=== PATIENT | female | born 2000 | race Caucasian/White ===

== ENCOUNTER → 2020-10-19 16:00 | Outpatient (BNVA) | payer MEDICAID, SELFPAY | PROVIDERS: Visit Provider Nurse Practitioner Women's Health | DX: Z01.419 Encounter for gynecological examination (general) (routine) without abnormal findings (principal) | CPT/HCPCS: 88175 ==

== ENCOUNTER → 2021-11-10 14:55 | Outpatient (BNVA) | payer MEDICAID, SELFPAY | PROVIDERS: Visit Provider Obstetrics & Gynecology | DX: N92.6 Irregular menstruation, unspecified (principal) | CPT/HCPCS: 83525; 84443 ==

== ENCOUNTER → 2022-05-01 11:31 | Outpatient (BNVA) | payer MEDICAID, SELFPAY | PROVIDERS: Visit Provider Emergency Medicine | DX: O26.891 Other specified pregnancy related conditions, first trimester (principal); R10.2 Pelvic and perineal pain; Z3A.00 Weeks of gestation of pregnancy not specified | CPT/HCPCS: 84702 ==

== ENCOUNTER 2022-05-16 17:33 | Outpatient (CLI) | payer MEDICAID, SELFPAY ==
[2022-05-16 18:33] LABS: Basophils # 0.1 10^3/uL (0.0-0.1); Basophils % 0.5 %; Eosinophils # 0.2 10^3/uL (0.0-0.8); Eosinophils % 1.9 %; Hematocrit 37.9 % (37.0-47.0); Hemoglobin 12.7 g/dL (11.5-15.3); Lymphocytes % 40.3 %; Mean Corpuscular HGB Conc 33.5 g/dL (30.0-36.0); Mean Corpuscular Hemoglobin 31.1 pg (28.0-34.0); Mean Corpuscular Volume 92.7 fl (81-99); Mean Platelet Volume 10.6 fL (7.4-10.4); Monocytes % 9.8 %; Neutrophils # 4.67 10^3/uL (1.8-7.7); Neutrophils % 47.2 %; Nucleated Red Blood Cells % 0 %; Platelet Count 257 10^3/cmm (130-400); Red Blood Count 4.09 10^6/uL (4.1-5.3); Red Cell Distribution Width 12.4 % (12.1-15.1); White Blood Count 9.9 10^3/uL (4.0-10.0)
== END 2022-05-16 17:34 | disposition home or self-care (01) ==
LOC: LAB 17:41
PROVIDERS: PCP Nurse Practitioner Family; Visit Provider Nurse Practitioner Women's Health
DX: O46.90 Antepartum hemorrhage, unspecified, unspecified trimester (principal)
CPT/HCPCS: 84702; 85025; 86850; 86900

== ENCOUNTER → 2022-05-19 08:35 | Outpatient (BNVA) | payer MEDICAID, SELFPAY | PROVIDERS: PCP Nurse Practitioner Family; Visit Provider Nurse Practitioner Women's Health | DX: Z31.9 Encounter for procreative management, unspecified (principal); Z11.3 Encounter for screening for infections with a predominantly sexual mode of transmission; N63.0 Unspecified lump in unspecified breast; O20.0 Threatened abortion; Z34.90 Encounter for supervision of normal pregnancy, unspecified, unspecified trimester; N63.10 Unspecified lump in the right breast, unspecified quadrant; O20.9 Hemorrhage in early pregnancy, unspecified | CPT/HCPCS: 81025; 87491; 87591; 87661 ==

== ENCOUNTER 2022-06-01 18:08 | Emergency (ER) | payer MEDICAID, SELFPAY ==
[2022-06-01 19:20] VITALS: BMI 25.1
[2022-06-01 19:22] VITALS: BP 110/67; PULSE 85; RESP 18; TEMP 36.8; O2SAT 99
[2022-06-01 19:48] LABS: Add Urine Culture? No; Add Urine Microscopic? YES; Bacteria Urine TRACE /hpf; Bilirubin Urine Neg (Negative); Blood Urine Neg (Negative); Glucose Urine UA Norm (Normal); Ketones Urine Negative (Negative); Leukocyte Esterase Urine 1+ (Negative); Nitrate Urine Negative (Negative); Protein Urine Neg (Negative); RBC Urine 0-4 /hpf (0-2); Squamous Epithelial Cell Urine 25-40 /hpf (0-5); Urine Appearance Clear (CLEAR); Urine Color Yellow (Yellow); Urobilinogen Urine Norm (Negative); pH Urine 6 (5-7)
--- NOTE | 2022-06-01 21:44 | ED_ITS ---
HPI - Abdominal Pain General: Chief Complaint: Abdominal Pain Stated Complaint: 8 weeks cramping Time Seen by Provider: 06/01/22 20:20 History of Present Illness: Ms. Briseno is a 22-year-old lady G2, P1 LMP 04/07/2022 presenting to the emergency department for nausea, vomiting, and abdominal discomfort. She reports onset of symptoms approximately 2 weeks ago and contacted her physician who prescribed Reglan, she had mild improvement however now is worsening again where she is unable to tolerate any oral intake. She has had generalized abdominal cramping and some back pain. No vaginal bleeding or discharge. Urine seems more yellow than normal. Symptoms are exacerbated by any attempted p.o. intake. Cramping is mild to moderate intensity. Has had similar episodes with prior . No other specific changes in health, exacerbating, or alleviating factors identified. Onset (ago): day(s) Location: Diffuse Severity: moderate Quality: cramping Exacerbating factors: eating Relieving factors: nothing Associated Symptoms: Reports nausea and vomiting Treatments prior to arrival: other Related Data: Date of Last Menstrual Period: 04/07/22 Review of Systems General: Reports: 10 or more systems reviewed and unremarkable except in HPI and below GI: Reports: nausea and vomiting PFSH ED PFSH: Medical History No pertinent past medical history neghx: htn,dm,thyroid,dvt/pe Surgical History Hx of tonsillectomy Family History Family/Other Breast cancer Paternal aunt-- unknown dx age Grandmother Colon cancer Paternal --- unknown dx age Father Stroke Denies family history of Ovarian cancer Diabetes Heart disease Hypercholesteremia Bleeding disorder Hypertension Uterine cancer Thyroid disease Social History Smoking and tobacco status: former smoker (quit 2020) Female Reproductive History: Date of last menstrual period: 04/07/22 Sponta neous abortions: No Physical Exam Const: COMMON NORMALS: alert GENERAL APPEARANCE: cooperative, well developed and ill appearing (mildly) HENMT: COMMON NORMALS: normocephalic and atraumatic HEAD & SCALP: normocephalic and atraumatic Eye: COMMON NORMALS: conjunctivae normal CONJUNCTIVA: Yes conjunctivae normal SCLERA: sclerae normal Neck/C-Spine: COMMON NORMALS: supple GENERAL: Yes trachea midline Resp: COMMON NORMALS: clear to auscultation bilaterally EFFORT & INSPECTION: Yes able to speak in complete sentences AUSCULTATION: clear to auscultation bilaterally Cardio: COMMON NORMALS: regular rate and regular rhythm RATE: regular rate RHYTHM: regular rhythm GI: COMMON NORMALS: Soft to palpation PALPATION: Yes Soft to palpation and No Tenderness to palpation present (GI) Extremity: GENERAL: Yes normal exam except as noted and No edema Neuro: COMMON NORMALS: moves all extremities SENSORIUM/ORIENTATION: Yes alert and No Orientation impaired Psych: COMMON NORMALS: mental status grossly normal and Normal thought process present THOUGHT PROCESS: Normal thought process present Course Vital Signs: Vital signs: Vital Signs Temperature 98.2 F 06/01/22 19:22 Pulse Rate 85 06/01/22 19:22 Respiratory Rate 18 06/01/22 19:22 Blood Pressure 110/67 06/01/22 19:22 Pulse Oximetry 99 06/01/22 19:22 Oxygen Delivery Me thod 06/01/22 19:22 MDM - Abdominal Pain Medical Decision Making 22-year-old lady presenting with abdominal cramping, nausea, vomiting in the context of . Exam as above. Patient is nontoxic and there is no evidence of peritonitis. Urinalysis with squamous epithelial contamination. Wet prep with clue cells. Patient improved with fluids and antiemetic. She was able to tolerate antiemetic. 250 mg dose of Flagyl given. [id number]-[id number] ultrasound with IUP with normal heart rate identified. Most likely cause of patient symptoms is bacterial vaginosis and nausea and vomiting in . The results of ED evaluation were discussed with the patient including pre scriptions and/or symptomatic cares (if applicable) including appropriate and responsible use, followup plan, and return precautions. Patient has noted significant improvement with Reglan previously prescribed and therefore I will prescribe Zofran. The patient verbalized understanding and felt safe for discharge. Medical Records I reviewed the patient's medical records. Lab Data I reviewed the patient's lab results. Labs/Radiology: Laboratory Results Urine Color Yellow (Yellow) 06/01/22 19:19 Urine Appearance Clear (CLEAR) 06/01/22 19:19 Urine pH 6 (5-7) 06/01/22 19:19 Ur Specific [place] 1.020 (1.005-1.030) 06/01/22 19:19 Urine Protein Neg (Negative) 06/01/22 19:19 Urine Glucose (UA) Norm (Normal) 06/01/22 19:19 Urine Ketones Negative (Negative) 06/01/22 19:19 Urine Blood Neg (Negative) 06/01/22 19:19 Urine Nitrate Negative (Negative) 06/01/22 19:19 Urine Bilirubin Neg (Negative) 06/01/22 19:19 Urine Urobilinogen Norm mg/dL (Negative) 06/01/22 19:19 Ur Leukocyte Esterase 1+ (Negative) H 06/01/22 19:19 Urine RBC 0-4 /hpf (0-2) H 06/01/22 19:19 Urine WBC 10-15 /hpf (0-5) H 06/01/22 19:19 Ur Squamous Epith Cells 25-40 /hpf (0-5) H 06/01/22 19:19 Amorphous Sediment Not Reportable 06/01/22 19:19 Urine Bacteria Trace /hpf (NONE) 06/01/22 19:19 Discharge Plan Discharge Patient Disposition: Home Clinical Impression: Nausea/vomiting in , Bacterial vaginosis in Condition: Stable Prescriptions: New Unisom (doxylamine) 25 mg tablet 12.5 mg PO Q6H PRN (Reason: nausea and vomiting) Qty: 10 0RF pyridoxine (vitamin B6) 25 mg tablet 25 mg PO QID PRN (Reason: nausea and vomiting) Qty: 20 0RF ondansetron 4 mg tablet,disintegrating 4 mg PO Q8H PRN (Reason: nausea and vomiting) Qty: 15 0RF No Action prenat.vits,laurence,[id number] Tablet 1 tab PO DAILY metoclopramide HCl [Reglan] 10 mg tablet 10 mg PO Q6H PRN (Reason: nausea and vomiting) Qty: 120 0RF Discharge Orders: Discharge ED (Routine); Ordered 06/01/22 Ordered By: Bhavik Sanz Referrals: Melyssa Francisco, ARMATURE VARNISHER [Primary Care Provider] - Discharge Diet: Advance as tolerated and Clear Liquid Discharge Activity: Increase activity as tolerated Patient Instructions: Nausea and Vomiting in (ED), Bacterial Vaginosis (ED) Activity Restrictions/Additional Instructions: Thank you for visiting the emergency department. You were seen and evaluated for nausea and vomiting associated with abdominal discomfort during . We are pleased that you had improvement with treatment. You are found to have bacterial vaginosis which will be treated with antibiotics. Additionally will prescribe a number of antinausea medications. The combination of vitamin B6 and doxylamine is considered first-line for nausea and vomiting during given its safety profile. The Reglan that you were previously prescribed is considered the next most safe and I will also prescribe ondansetron if the others fail to improve symptoms. Recent small studies have raised a small degree of concern regarding small increase in likelihood of oral clefts associated with ondansetron use however, as discussed, your health likely makes a more significant effect on than possible side effects of medication. Please follow-up with your accounting recruiter. Return to the emergency department for uncontrolled symptoms, inability to tolerate oral intake, or anything else that you are concerned about a feel needs emergency department evaluation. Coding Level of Care Code ED Floor Renovator for Keli Loo
[2022-06-01] MEDS: ondansetron 2 mg/ML SDV 2 mL 4 MG IVP (22:16)
[2022-06-01] MEDS: sodium chloride 0.9% 1,000 ML 999 ML IV (22:16)
[2022-06-01] MEDS: metroNIDAZOLE 500 MG Tablet 250 MG PO (23:26)
== END 2022-06-01 23:49 | disposition home or self-care (01) ==
PROVIDERS: Emergency Medicine; Emergency Provider Emergency Medicine; PCP Nurse Practitioner Family
DX: O23.591 Infection of other part of genital tract in pregnancy, first trimester (principal); O21.9 Vomiting of pregnancy, unspecified; B96.89 Other specified bacterial agents as the cause of diseases classified elsewhere; Z3A.08 8 weeks gestation of pregnancy
CPT/HCPCS: 81001; 87210; 87491; 87591; 96361; 96374; 99284; J2405; J7030

== ENCOUNTER 2022-06-15 14:22 | Outpatient (CLI) | payer MEDICAID, SELFPAY ==
--- NOTE | 2022-06-15 14:27 | US_ITS ---
WS: [id number] ULTRASOUND BREAST RIGHT TECHNIQUE: Ultrasound right breast focused area of concern. CLINICAL INFORMATION: N63.0 - Unspecified lump in unspecified breast COMPARISON: None. FINDINGS: Ultrasound RIGHT breast 12:00 position in the area of patient concern. Normal underlying dense parenc hymal tissue. No cystic or solid lesions. No lesions to target for biopsy. US/US breast RT limited* [id number] IMPRESSION: BI-RADS 2 benign FOLLOW UP: Recommend annual screening mammography age 40
== END 2022-06-15 14:23 | disposition home or self-care (01) ==
LOC: RAD 14:23
PROVIDERS: PCP Nurse Practitioner Family; Visit Provider Nurse Practitioner Women's Health
DX: N63.10 Unspecified lump in the right breast, unspecified quadrant (principal)
CPT/HCPCS: 76642

== ENCOUNTER 2022-06-22 11:38 | Outpatient (CLI) | payer MEDICAID, SELFPAY ==
[2022-06-22 12:25] LABS: Basophils % 0.3 %; Eosinophils # 0.1 10^3/uL (0.0-0.8); Eosinophils % 1.1 %; Hematocrit 41.1 % (37.0-47.0); Hemoglobin 13.7 g/dL (11.5-15.3); Lymphocytes # 2.6 10^3/uL (0.8-4.8); Lymphocytes % 27.1 %; Mean Corpuscular HGB Conc 33.3 g/dL (30.0-36.0); Mean Corpuscular Hemoglobin 31.3 pg (28.0-34.0); Mean Corpuscular Volume 93.8 fl (81-99); Mean Platelet Volume 10.3 fL (7.4-10.4); Monocytes # 0.8 10^3/uL (0.2-0.9); Monocytes % 8.2 %; Neutrophils # 5.94 10^3/uL (1.8-7.7); Nucleated Red Blood Cells % 0 %; Platelet Count 253 10^3/cmm (130-400); Red Blood Count 4.38 10^6/uL (4.1-5.3); Red Cell Distribution Width 12.7 % (12.1-15.1); White Blood Count 9.4 10^3/uL (4.0-10.0)
[2022-06-22 12:50] LABS: Rubella IgG 41.7 IU/mL (0.0-10.0)
[2022-06-22 12:53] LABS: Hepatitis B Surface Antigen Non-Reactive (Nonreactive); Hepatitis C Virus Antibody Non-Reactive (Nonreactive)
[2022-06-22 13:02] LABS: HIV 1 & 2 Antibody Non-Reactive (Non-Reactiv); HIV 1 & 2 Antigen Non-Reactive (Non-Reactiv)
== END 2022-06-22 11:39 | disposition home or self-care (01) ==
LOC: LAB 11:41
PROVIDERS: PCP Nurse Practitioner Family; Visit Provider Obstetrics & Gynecology
DX: Z34.90 Encounter for supervision of normal pregnancy, unspecified, unspecified trimester (principal)
CPT/HCPCS: 36415; 80307; 81000; 85025; 86762; 86803; 86850; 86900; 87086; 87340; 87806

== ENCOUNTER 2022-06-29 14:50 | Outpatient (CLI) | payer MEDICAID, SELFPAY ==
[2022-06-29 15:04] VITALS: BP 121/71; PULSE 79; TEMP 36.1
[2022-06-29 15:12] VITALS: TEMP 36.6
[2022-06-29 15:15] VITALS: BMI 25.4
[2022-06-29] MEDS: dextrose 5%-lactated ringers 1,000 ML 999 ML IV ×2 (15:31→16:30)
[2022-06-29] MEDS: ondansetron 2 mg/ML SDV 2 mL 4 MG IVP (15:31)
== END 2022-06-29 18:02 | disposition home or self-care (01) ==
LOC: OPOB 14:56 → OBGYN 14:57
PROVIDERS: PCP Nurse Practitioner Family; Visit Provider Obstetrics & Gynecology
DX: O21.8 Other vomiting complicating pregnancy (principal)
CPT/HCPCS: 36415; 96374; 99211; J2405; J7121

== ENCOUNTER 2022-06-30 15:19 | Outpatient (CLI) | payer MEDICAID, SELFPAY ==
--- NOTE | 2022-06-30 15:29 | USR_ITS ---
PROCEDURE INFORMATION: Exam: US , Limited Exam date and time: 06/30/2022 3:55 PM Age: 22 years old Clinical indication: Lmp or gestational age (in weeks): 12w0d; Other: Vag bleeding with cramping; ; Additional info: Bleeding. Placenta evaluation, well being LABS AND CLINICAL REPORTS: Last menstrual period start date: 04/07/2022 Gestational age (Established): 12 w 0 d Estimated due date (Established): 01/12/2023 TECHNIQUE: Imaging protocol: Real-time ultrasound of the maternal uterus with image documentation. Exam focused on the clinical indication. COMPARISON: US OB transvaginal [facility] 05/19/2022 7:39 AM FINDINGS: Gestation: Intrauterine gestation. heart rate: 176-164 bpm presentation: Transverse Placenta: Anterior grade 0 placenta without previa. Small inferior left subchorionic hypoechoic fluid collection measuring 0.7 x 1.6 x 1.0 cm. Amniotic fluid: Amniotic fluid volume is normal. BIOMETRY: Gestational age (AUA): 12 w 3 d Estimated due date (AUA): 01/09/2023 [place]-rump length: 12 weeks 2 days. MATERNAL: Uterus: Uterus measures 11.1 cm x 10.3 cm x 8.6 cm. Cervix: Cervical length measures 3.91-4.05 cm. Right ovary/adnexa: Right ovary measures 2.5 cm x 1.4 cm x 1.7 cm. Right ovarian volume is 3 mL. Peak systolic velocity 14.9 cm/sec. Left ovary/adnexa: Left ovary measures 2.9 cm x 1.9 cm x 2.9 cm. Left ovarian volume is 8.4 mL. Peak systolic velocity 22.8 cm/sec. US/US OB limited [id number] IMPRESSION: Single living intrauterine . Small subchorionic hemorrhage.
[2022-06-30 15:32] VITALS: BMI 25.5
== END 2022-06-30 16:45 | disposition home or self-care (01) ==
LOC: OPOB 15:20 → OBGYN 15:22
PROVIDERS: PCP Nurse Practitioner Family; Visit Provider Obstetrics & Gynecology
DX: O46.91 Antepartum hemorrhage, unspecified, first trimester (principal); Z3A.12 12 weeks gestation of pregnancy
CPT/HCPCS: 76815; 99211

== ENCOUNTER → 2022-07-05 10:30 | Outpatient (BNVA) | payer MEDICAID, SELFPAY | PROVIDERS: PCP Nurse Practitioner Family; Visit Provider Obstetrics & Gynecology | DX: Z34.90 Encounter for supervision of normal pregnancy, unspecified, unspecified trimester (principal) | CPT/HCPCS: 81000; 87086 ==

== ENCOUNTER 2022-07-17 11:50 | Emergency (ER) | payer MEDICAID, SELFPAY ==
[2022-07-17 12:32] VITALS: BP 103/67; PULSE 81; RESP 14; TEMP 36.8; O2SAT 99; BMI 24.9
--- NOTE | 2022-07-17 12:47 | ED_ITS ---
HPI - Nausea/Vomiting/Diarrhea General: Chief complaint: Nausea/Vomiting/Diarrhea Stated complaint: 14 Weeks Preg, N/V Time Seen by Provider: 07/17/22 12:39 Source: patient Mode of arrival: ambulatory Limitations: no limitations History of Present Illness: Patient is a 22-year-old female 14 weeks here for concerns of dehydration. She states she has been diagnosed with hyperemesis gravidarum. She has been on several different medications through her OB doctor Dr. Parker for nausea and vomiting. She states she is here today because she feels dizzy and weak. Patient is not having any vaginal bleeding or vaginal discharge. She is not having any abdominal or pelvic pain. No fevers. Currently she is not feeling nauseous. MD elicited complaint: nausea and vomiting Onset (ago): week(s) Associated nausea: Yes Associated abdominal pain: No Location of pain: None Exacerbating factors: eating Relieving factors: none Associated symtoms: Reports dizziness and nausea; Denies change in vision, chest pain, dysuria, fatigue, headache(s) or malaise Review of Systems Const: Denies: fever(s), chills, body aches, fatigue or malaise Eyes: Denies: change in vision or blurry vision Card: Denies: chest pain Resp: Denies: dyspnea GI: Reports: nausea and vomiting; Denies: abdominal pain, hematemesis or change in bowel habits : Denies: flank pain, dysuria, urinary urgency, urinary hesitancy, vaginal bleeding, vaginal discharge or pelvic pain Musc: Denies: back pain Skin/Breast: Denies: rash Neuro: Reports: dizziness; Denies: headache(s), numbness in extremities, weakness in extremities, sensory changes or confusion PFSH ED PFSH: Medical History No pertinent past medical history neghx: htn,dm,thyroid,dvt/pe Surgical History Hx of tonsillectomy Family History Family/Other Breast cancer Paternal aunt-- unknown dx age Grandmother Colon cancer Paternal --- unknown dx age Father Stroke Denies family history of Ovarian cancer Diabetes Heart disease Hypercholesteremia Bleeding disorder Hypertension Uterine cancer Thyroid disease Social History Smoking and tobacco status: former smoker (quit 2020) Female Reproductive History: Date of last menstrual period: 04/07/22 Spontaneous abortions: No Physical Exam Const: COMMON NORMALS: no acute distress, average body habitus, patient o riented x3, no limitations, healthy appearing, alert and well nourished GENERAL APPEARANCE: cooperative ORIENTATION/CONSCIOUSNESS: Yes awake, Yes oriented to person, Yes oriented to place and Yes oriented to time HENMT: COMMON NORMALS: normocephalic and atraumatic HEAD & SCALP: normal to inspection, normocephalic and atraumatic Resp: COMMON NORMALS: normal respiratory effort and clear to auscultation bilaterally AUSCULTATION: clear to auscultation bilaterally Cardio: COMMON NORMALS: regular rate and regular rhythm RATE: regular rate RHYTHM: regular rhythm GI: COMMON NORMALS: Normal to inspection, nondistended, normoactive bowel sounds present, Soft to palpation and non-tender PALPATION: Yes Soft to palpation : COMMON NORMALS: Yes no CVA tenderness BLADDER/KIDNEY EXAM: Yes no CVA tenderness Back/Pelvis: COMMON NORMALS: no CVA tenderness Extremity: GENERAL: Yes normal exam except as noted Neuro: WALT COMA SCALE: document GCS findings [place] coma scale eye opening: Spontaneous [place] coma scale verbal response: Orientated Walt coma scale motor response: Obey commands Walt coma scale total score: 15 COMMON NORMALS: patient oriented x3, moves all extremities, no focal motor deficits and no sensory deficits noted SENSORIUM/ORIENTATION: Yes alert, Yes oriented to person, Yes oriented to place and Yes oriented to time Skin: COMMON NORMALS: no rashes or lesions noted GENERAL SKIN EXAM: no r ashes or lesions noted Course Vital Signs: Vital signs: Vital Signs Temperature 98.3 F 07/17/22 12:32 Pulse Rate 81 07/17/22 12:32 Respiratory Rate 14 07/17/22 12:32 Blood Pressure 103/67 07/17/22 12:32 Pulse Oximetry 99 07/17/22 12:32 Oxygen Delivery Me thod 07/17/22 12:32 MDM - Nausea/Vomiting/Diarrhea Medical Decision Making Patient's vital signs are stable. She has not had any episodes of vomiting while here. She is eating pretzels and drinking Sprite during my re- examination. Labs overall are non-concerning. She has trace leuks and WBCs in her urine but has no urinary complaints at this time. Recommend she follow-up with her OB provider this week if nausea and vomiting persists. Return to ED precautions discusssed. Lab Data 07/17/22 12:55 07/17/22 12:55 Laboratory Results WBC 8.9 10^3/uL (4.0-10.0) 07/17/22 12:55 RBC 4.22 10^6/uL (4.1-5.3) 07/17/22 12:55 Hgb 13.6 g/dL (11.5-15.3) 07/17/22 12:55 Hct 40.3 % (37.0-47.0) 07/17/22 12:55 MCV 95.5 fl (81-99) 07/17/22 12:55 MCH 32.2 pg (28.0-34.0) 07/17/22 12:55 MCHC 33.7 g/dL (30.0-36.0) 07/17/22 12:55 RDW 12.7 % (12.1-15.1) 07/17/22 12:55 Plt Count 225 10^3/cmm (130-400) 07/17/22 12:55 MPV 10.2 fL (7.4-10.4) 07/17/22 12:55 Neut % (Auto) 63.1 % 07/17/22 12:55 Lymph % (Auto) 27.4 % 07/17/22 12:55 [place] % (Auto) 7.5 % 07/17/22 12:55 Eos % (Auto) 1.5 % 07/17/22 12:55 Baso % (Auto) 0.3 % 07/17/22 12:55 Neut # (Auto) 5.61 10^3/uL (1.8-7.7) 07/17/22 12:55 Lymph # (Auto) 2.4 10^3/uL (0.8-4.8) 07/17/22 12:55 [place] # (Auto) 0.7 10^3/uL (0.2-0.9) 07/17/22 12:55 Eos # (Auto) 0.1 10^3/uL (0.0-0.8) 07/17/22 12:55 Baso # (Auto) 0.0 10^3/uL (0.0-0.1) 07/17/22 12:55 Nucleated RBC % (auto) 0 % 07/17/22 12:55 Nucleated RBCs # 0.0 /100WBC 07/17/22 12:55 Sodium 134 mmol/L (136-145) L 07/17/22 12:55 Potassium 3.5 mmol/L (3.5-5.1) 07/17/22 12:55 Chloride 102 mmol/L (98-107) 07/17/22 12:55 Carbon Dioxide 23 mmol/L (22-29) 07/17/22 12:55 Anion Gap 12.5 (5-19) 07/17/22 12:55 BUN 5 mg/dL (6-20) L 07/17/22 12:55 Creatinine 0.4 mg/dL (0.5-0.9) L 07/17/22 12:55 GFR Calculation 197.8 mL/min (90-130) H 07/17/22 12:55 Glucose 75 mg/dL (65-115) 07/17/22 12:55 Calculated Osmolality 274 mOsm/kg (285-295) L 07/17/22 12:55 Calcium 8.6 mg/dL (8.5-10.5) 07/17/22 12:55 Total Bilirubin 0.7 mg/dL (0.15-1.2) 07/17/22 12:55 AST 12 U/L (0-32) 07/17/22 12:55 ALT 7 U/L (0-33) 07/17/22 12:55 Alkaline Phosphatase 44 U/L (35-105) 07/17/22 12:55 Total Protein 6.6 g/dL (6.6-8.7) 07/17/22 12:55 Albumin 4.1 g/dL (3.5-5.2) 07/17/22 12:55 Globulin 2.5 g/dL (1.3-4.6) 07/17/22 12:55 Urine Color Yellow (Yellow) 07/17/22 13:23 Urine Appearance Cloudy (CLEAR) A 01/02/23 13:23 Urine pH 8 (5-7) H 07/17/22 13:23 Ur Specific [place] 1.015 (1.005-1.030) 07/17/22 13:23 Urine Protein Neg (Negative) 07/17/22 13:23 Urine Glucose (UA) Norm (Normal) 07/17/22 13:23 Urine Ketones Negative (Negative) 07/17/22 13:23 Urine Blood Neg (Negative) 07/17/22 13:23 Urine Nitrate Negative (Negative) 07/17/22 13:23 Urine Bilirubin Neg (Negative) 07/17/22 13:23 Prot Sulfosalicylic Acd Negative (Negative) 07/17/22 13:23 Urine Urobilinogen Norm mg/dL (Negative) 07/17/22 13:23 Ur Leukocyte Esterase Trace (Negative) H 07/17/22 13:23 Urine RBC None /hpf (0-2) 07/17/22 13:23 Urine WBC 0-4 /hpf (0-5) H 07/17/22 13:23 Ur Squamous Epith Cells 0-4 /hpf (0-5) H 07/17/22 13:23 Amorphous Sediment 1+ /hpf 07/17/22 13:23 Urine Bacteria Trace /hpf (NONE) 07/17/22 13:23 Urine Mucus 2+ /hpf 07/17/22 13:23 Discharge Plan Discharge Patient Disposition: Home Clinical Impression: Nausea/vomiting in Condition: Stable Prescriptions: No Action prenat.vits,laurence,[id number] Tablet 1 tab PO DAILY metoclopramide HCl [Reglan] 10 mg tablet 10 mg PO Q6H PRN (Reason: nausea and vomiting) Qty: 90 0RF prochlorperazine maleate [Compazine] 10 mg tablet 10 mg PO Q6H PRN (Reason: nausea and vomiting) Qty: 90 0RF Unisom (doxylamine) 25 mg tablet 12.5 mg PO Q6H PRN (Reason: nausea and vomiting) Qty: 10 0RF pyridoxine (vitamin B6) 25 mg tablet 25 mg PO QID PRN (Reason: nausea and vomiting) Qty: 20 0RF ondansetron 4 mg tablet,disintegrating 4 mg PO Q8H PRN (Reason: nausea and vomiting) Qty: 15 0RF Discharge Orders: Discharge ED (Routine); Ordered 07/17/22 Ordered By: Tangela Alcaraz Referrals: Melyssa Francisco, NELLA [Primary Care Provider] - Coding Level of Care Code ED Power Reactor Supervisor for Chg Fwd Exam Comprehensive
[2022-07-17] MEDS: sodium chloride 0.9% 1,000 ML 999 ML IV (13:00)
[2022-07-17 13:02] LABS: Basophils % 0.3 %; Eosinophils # 0.1 10^3/uL (0.0-0.8); Eosinophils % 1.5 %; Hematocrit 40.3 % (37.0-47.0); Hemoglobin 13.6 g/dL (11.5-15.3); Lymphocytes # 2.4 10^3/uL (0.8-4.8); Lymphocytes % 27.4 %; Mean Corpuscular HGB Conc 33.7 g/dL (30.0-36.0); Mean Corpuscular Hemoglobin 32.2 pg (28.0-34.0); Mean Corpuscular Volume 95.5 fl (81-99); Mean Platelet Volume 10.2 fL (7.4-10.4); Monocytes # 0.7 10^3/uL (0.2-0.9); Monocytes % 7.5 %; Neutrophils # 5.61 10^3/uL (1.8-7.7); Neutrophils % 63.1 %; Nucleated Red Blood Cells % 0 %; Platelet Count 225 10^3/cmm (130-400); Red Blood Count 4.22 10^6/uL (4.1-5.3); Red Cell Distribution Width 12.7 % (12.1-15.1); White Blood Count 8.9 10^3/uL (4.0-10.0)
[2022-07-17 13:19] LABS: Alanine Aminotransferase 7 U/L (0-33); Albumin Level 4.1 g/dL (3.5-5.2); Alkaline Phosphatase 44 U/L (35-105); Anion Gap 12.5 (5-19); Aspartate Amino Transferase 12 U/L (0-32); Blood Urea Nitrogen 5 mg/dL (6-20); Calcium 8.6 mg/dL (8.5-10.5); Carbon Dioxide 23 mmol/L (22-29); Chloride 102 mmol/L (98-107); Globulin 2.5 g/dL (1.3-4.6); Glomerular Filtration Rate 197.8 mL/min (90-130); Glucose 75 mg/dL (65-115); Osmolality Calculated 274 mOsm/kg (285-295); Potassium 3.5 mmol/L (3.5-5.1); Sodium 134 mmol/L (136-145); Total Bilirubin 0.7 mg/dL (0.15-1.2); Total Protein 6.6 g/dL (6.6-8.7)
[2022-07-17 13:47] LABS: Bilirubin Urine Neg (Negative); Blood Urine Neg (Negative); Glucose Urine UA Norm (Normal); Ketones Urine Negative (Negative); Leukocyte Esterase Urine Trace (Negative); Nitrate Urine Negative (Negative); Protein Urine Neg (Negative); Specific Gravity, Urine 1.015 (1.005-1.030); Sulfosalicylic Acid Urine Negative (Negative); Urine Appearance Cloudy (CLEAR); Urine Color Yellow (Yellow); Urobilinogen Urine Norm (Negative); pH Urine 8 (5-7)
[2022-07-17 13:48] LABS: Add Urine Culture? No; Add Urine Microscopic? YES; Amorphous Sediment Urine 1+ /hpf; Bacteria Urine TRACE /hpf; Mucus Urine 2+ /hpf; Squamous Epithelial Cell Urine 0-4 /hpf (0-5); WBC Urine 0-4 /hpf (0-5)
[2022-07-17 14:16] VITALS: BP 106/70; PULSE 83; RESP 14; O2SAT 99
== END 2022-07-17 14:11 | disposition home or self-care (01) ==
PROVIDERS: Emergency Provider Physician Assistant; PCP Nurse Practitioner Family
DX: O21.9 Vomiting of pregnancy, unspecified (principal); Z3A.14 14 weeks gestation of pregnancy; Z87.891 Personal history of nicotine dependence
CPT/HCPCS: 80053; 81001; 85025; 96360; 99284; J7030

== ENCOUNTER 2022-11-28 07:08 | Outpatient (CLI) | payer MEDICAID, SELFPAY ==
[2022-11-28] VITALS (7 sets, daily range): BP systolic 103–121; BP diastolic 58–66; PULSE 73–83; RESP 15; TEMP 36.1; BMI 28.8
[2022-11-28 08:24] LABS: Add Urine Culture? No; Amorphous Sediment Urine 3+ /hpf; Bacteria Urine 1+ /hpf; Bilirubin Urine Neg (Negative); Blood Urine Neg (Negative); Glucose Urine UA Norm (Normal); Ketones Urine 2+ (Negative); Leukocyte Esterase Urine Negative (Negative); Mucus Urine TRACE /hpf; Nitrate Urine Negative (Negative); Protein Urine Neg (Negative); RBC Urine 0-4 /hpf (0-2); Specific Gravity, Urine 1.015 (1.005-1.030); Squamous Epithelial Cell Urine 0-4 /hpf (0-5); Urine Appearance Cloudy (CLEAR); Urine Color Yellow (Yellow); Urobilinogen Urine Norm (Negative); WBC Urine 0-4 /hpf (0-5); pH Urine 7 (5-7)
== END 2022-11-28 08:33 | disposition home or self-care (01) ==
LOC: OPOB 07:09 → OBGYN 07:10
PROVIDERS: PCP Nurse Practitioner Family; Visit Provider Obstetrics & Gynecology
DX: O26.899 Other specified pregnancy related conditions, unspecified trimester (principal); R10.2 Pelvic and perineal pain; M54.9 Dorsalgia, unspecified; R11.10 Vomiting, unspecified; Z3A.00 Weeks of gestation of pregnancy not specified
CPT/HCPCS: 59025; 81001; 99211

== ENCOUNTER 2022-12-15 10:48 | Outpatient (CLI) | payer MEDICAID, SELFPAY ==
[2022-12-15] VITALS (9 sets, daily range): BP systolic 99–120; BP diastolic 57–76; PULSE 80–93; RESP 18
[2022-12-15 11:59] LABS: Add Urine Microscopic? NO; Charge for UA Resulting for Rev
[2022-12-15 12:00] LABS: Basophils % 0.2 %; Eosinophils % 0.1 %; Hemoglobin 10.7 g/dL (11.5-15.3); Lymphocytes # 1.5 10^3/uL (0.8-4.8); Lymphocytes % 14.9 %; Mean Corpuscular HGB Conc 32.4 g/dL (30.0-36.0); Mean Corpuscular Hemoglobin 30.7 pg (28.0-34.0); Mean Corpuscular Volume 94.8 fl (81-99); Mean Platelet Volume 11.6 fL (7.4-10.4); Monocytes # 0.9 10^3/uL (0.2-0.9); Monocytes % 8.6 %; Neutrophils % 75.2 %; Nucleated Red Blood Cells % 0 %; Platelet Count 194 10^3/cmm (130-400); Red Blood Count 3.48 10^6/uL (4.1-5.3); Red Cell Distribution Width 12.3 % (12.1-15.1); White Blood Count 10.2 10^3/uL (4.0-10.0)
[2022-12-15 12:14] LABS: Bilirubin Urine Neg (Negative); Blood Urine Neg (Negative); Glucose Urine UA Norm (Normal); Ketones Urine Negative (Negative); Nitrate Urine Negative (Negative); Protein Urine Neg (Negative); Sulfosalicylic Acid Urine Negative (Negative); Urine Appearance Clear (CLEAR); Urine Color Yellow (Yellow); pH Urine 8 (5-7)
[2022-12-15 12:15] LABS: Leukocyte Esterase Urine Negative (Negative); Urobilinogen Urine Neg (Negative)
[2022-12-15 12:24] LABS: Alanine Aminotransferase 7 U/L (0-33); Albumin Level 3.3 g/dL (3.5-5.2); Alkaline Phosphatase 94 U/L (35-105); Anion Gap 13.1 (5-19); Aspartate Amino Transferase 13 U/L (0-32); Blood Urea Nitrogen 5 mg/dL (6-20); Calcium 8.6 mg/dL (8.5-10.5); Carbon Dioxide 24 mmol/L (22-29); Chloride 103 mmol/L (98-107); Globulin 2.9 g/dL (1.3-4.6); Glomerular Filtration Rate 152.9 mL/min (90-130); Glucose 87 mg/dL (65-115); Osmolality Calculated 281 mOsm/kg (285-295); Potassium 3.1 mmol/L (3.5-5.1); Sodium 137 mmol/L (136-145); Total Bilirubin 0.5 mg/dL (0.15-1.2); Total Protein 6.2 g/dL (6.6-8.7); Urine Creatinine 131 mg/dL (28-217); Urine Protein Random 17 mg/dL
[2022-12-15 12:25] LABS: UPRO/UCREAT Ratio 0.13 mg/mg CR
== END 2022-12-15 13:15 | disposition home or self-care (01) ==
LOC: OPOB 10:53 → OBGYN 10:55
PROVIDERS: PCP Nurse Practitioner Family; Visit Provider Family Medicine
DX: O16.9 Unspecified maternal hypertension, unspecified trimester (principal); O12.00 Gestational edema, unspecified trimester; Z3A.00 Weeks of gestation of pregnancy not specified
CPT/HCPCS: 36415; 59025; 80053; 81003; 82570; 84156; 84550; 85025; 99211

== ENCOUNTER 2023-01-04 14:06 | Emergency (ER) | payer MEDICAID, SELFPAY ==
[2023-01-04 14:09] VITALS: BP 133/82; PULSE 83; RESP 16; TEMP 36.7; O2SAT 98; BMI 27.8
[2023-01-04 14:45] LABS: Basophils % 0.4 %; Eosinophils # 0.3 10^3/uL (0.0-0.8); Hematocrit 34.1 % (37.0-47.0); Hemoglobin 11.1 g/dL (11.5-15.3); Lymphocytes # 1.8 10^3/uL (0.8-4.8); Lymphocytes % 21.1 %; Mean Corpuscular HGB Conc 32.6 g/dL (30.0-36.0); Mean Corpuscular Hemoglobin 30.7 pg (28.0-34.0); Mean Corpuscular Volume 94.5 fl (81-99); Mean Platelet Volume 10.4 fL (7.4-10.4); Monocytes # 0.7 10^3/uL (0.2-0.9); Monocytes % 8.6 %; Neutrophils # 5.51 10^3/uL (1.8-7.7); Neutrophils % 66.4 %; Nucleated Red Blood Cells % 0 %; Platelet Count 251 10^3/cmm (130-400); Red Blood Count 3.61 10^6/uL (4.1-5.3); White Blood Count 8.3 10^3/uL (4.0-10.0)
--- NOTE | 2023-01-04 15:03 | PC.NURSE ---
anesthesia is bedside going over procedure and consent.
[2023-01-04 15:09] LABS: Anion Gap 14.5 (5-19); Blood Urea Nitrogen 7 mg/dL (6-20); Calcium 8.4 mg/dL (8.5-10.5); Carbon Dioxide 24 mmol/L (22-29); Chloride 108 mmol/L (98-107); Glomerular Filtration Rate 123.9 mL/min (90-130); Glucose 74 mg/dL (65-115); Osmolality Calculated 293 mOsm/kg (285-295); Potassium 3.5 mmol/L (3.5-5.1); Sodium 143 mmol/L (136-145)
[2023-01-04] MEDS: fentaNYL 50 mcg/mL INJ 2mL 25 MCG IVP (15:47)
--- NOTE | 2023-01-04 15:55 | ED_ITS ---
HPI - Headache General: Chief Complaint: Headache Stated Complaint: Neck pain Headache Time Seen by Provider: 01/04/23 14:24 Source: patient Mode of arrival: ambulatory History of Present Illness: 22-year-old female presents emergency room with complaint of headache. 4 days ago she delivered at [facility] in [place] she had his Po spinal tap headache 2 days after delivery she had a blood patch applied at [facility] initially he had good relief now has recurrence of her headache. It is only when she is sitting up or standing she describes it as 10 of 10 pounding and is relieved when she lays down flat. She denies any fever sweats or chills MD elicited complaint: headache Onset (ago): day(s) Quality & Timing: throbbing, intermittent and similar to previous headaches Exacerbating factors: sitting/standing Relieving factors: other (Lying down) Associated symptoms: Reports diaphoresis; Deny chest pain, confusion, cough, eye pain, eye redness, fever(s), loss of vision, malaise, nausea, neck stiffness, numbness, paresthesias, photophobia, rash, seizures, short of breath, sound sensitivity, vomiting or weakness Treatments prior to arrival: acetaminophen and ibuprofen Review of Systems Const: Reports: diaphoresis; Denies: fever(s), chills, fatigue or malaise ENMT: Denies: throat pain, ear or mastoid pain, nasal discharge or nasal congestion Card: Denies: chest pain Resp: Denies: dyspnea, productive cough or non-productive cough GI: Denies: abdominal pain, nausea or vomiting : Denies: flank pain, difficulty voiding, dysuria, urinary frequency or urinary urgency Musc: Reports: neck pain Skin/Breast: Denies: rash Neuro: Reports: headache(s); Denies: confusion PFSH ED PFSH: Medical History No pertinent past medical history neghx: htn,dm,thyroid,dvt/pe Surgical History Hx of tonsillectomy Family History Family/Other Breast cancer Paternal aunt-- unknown dx age Grandmother Colon cancer Paternal --- unknown dx age Father Stroke Denies family history of Ovarian cancer Diabetes Heart disease Hypercholesteremia Bleeding disorder Hypertension Uterine cancer Thyroid disease Social History Smoking and tobacco status: former smoker (quit 2020) Female Reproductive History: Spontaneous abortions: No Physical Exam Const: GENERAL APPEARANCE: cooperative and comfortable ORIENTATION/CONSCIOUSNESS: Yes awake, Yes oriented to person, Yes oriented to place and Yes oriented to time HENMT: COMMON NORMALS: normocephalic, atraumatic and hearing grossly normal bilaterally HEAD & SCALP: normocephalic and atraumatic Eye: DIRECT OPHTHALMOSCOPY: No photophobia Resp: COMMON NORMALS: normal respiratory effort, No retractions, No use of accessory muscles and clear to auscultation bilaterally AUSCULTATION: clear to auscultation bilaterally Cardio: COMMON NORMALS: regular rate, regular rhythm and No murmurs present (Cardio) RATE: regular rate RHYTHM: regular rhythm GI: COMMON NORMALS: Soft to palpation and No hepatosplenomegaly present AUSCULTATION: Yes normoactive bowel sounds PALPATION: Yes Soft to palpation, No Tenderness to palpation present (GI), No Guarding due to palpation present (GI) and Yes No hepatosplenomegaly present Extremity: COMMON NORMALS: normal to inspection, capillary refill normal, no clubbing, cyanosis or edema, no calf tenderness and no pedal edema Neuro: SENSORIUM/ORIENTATION: Yes oriented to person, Yes oriented to place and Yes oriented to time Skin: COMMON NORMALS: no rashes or lesions noted GENERAL SKIN EXAM: no rashes or lesions noted Course Vital Signs: Vital signs: Vital Signs Temperature 98.1 F 01/04/23 14:09 Pulse Rate 70 01/04/23 16:17 Respiratory Rate 18 01/04/23 16:17 Blood Pressure 124/79 01/04/23 16:17 Pulse Oximetry 99 01/04/23 16:17 Oxygen Delivery Me thod Room Air 01/04/23 16:17 MDM - Headache Medical Decision Making On-call anesthesia consulted. Dr. Abbasi was kind enough to come to the emergency room and applied a second blood patch she has moderate relief of symptoms he asked that we monitor for 30 to 60 minutes after the blood patch is applied and given her IV fluids and analgesics. Is tolerating well will discharge home follow-up with primary care if she has worsening or persistent headache she recommended she contact Dr. Abbasi or return to the emergency room. Dr. Abbasi had advised he would be more than happy to see her tomorrow if she still had a persistent headache and he could repeat the patch if needed Medical Records I reviewed the patient's medical records. Lab Data I reviewed the patient's lab results. 01/04/23 14:39 01/04/23 14:39 Laboratory Results WBC 8.3 10^3/uL (4.0-10.0) 01/04/23 14:39 RBC 3.61 10^6/uL (4.1-5.3) L 01/04/23 14:39 Hgb 11.1 g/dL (11.5-15.3) L 01/04/23 14:39 Hct 34.1 % (37.0-47.0) L 01/04/23 14:39 MCV 94.5 fl (81-99) 01/04/23 14:39 MCH 30.7 pg (28.0-34.0) 01/04/23 14:39 MCHC 32.6 g/dL (30.0-36.0) 01/04/23 14:39 RDW 13.0 % (12.1-15.1) 01/04/23 14:39 Plt Count 251 10^3/cmm (130-400) 01/04/23 14:39 MPV 10.4 fL (7.4-10.4) 01/04/23 14:39 Neut % (Auto) 66.4 % 01/04/23 14:39 Lymph % (Auto) 21.1 % 01/04/23 14:39 [place] % (Auto) 8.6 % 01/04/23 14:39 Eos % (Auto) 3.0 % 01/04/23 14:39 Baso % (Auto) 0.4 % 01/04/23 14:39 Neut # (Auto) 5.51 10^3/uL (1.8-7.7) 01/04/23 14:39 Lymph # (Auto) 1.8 10^3/uL (0.8-4.8) 01/04/23 14:39 [place] # (Auto) 0.7 10^3/uL (0.2-0.9) 01/04/23 14:39 Eos # (Auto) 0.3 10^3/uL (0.0-0.8) 01/04/23 14:39 Baso # (Auto) 0.0 10^3/uL (0.0-0.1) 01/04/23 14:39 Nucleated RBC % (auto) 0 % 01/04/23 14:39 Nucleated RBCs # 0.0 /100WBC 01/04/23 14:39 Sodium 143 mmol/L (136-145) 01/04/23 14:39 Potassium 3.5 mmol/L (3.5-5.1) 01/04/23 14:39 Chloride 108 mmol/L (98-107) H 01/04/23 14:39 Carbon Dioxide 24 mmol/L (22-29) 01/04/23 14:39 Anion Gap 14.5 (5-19) 01/04/23 14:39 BUN 7 mg/dL (6-20) 01/04/23 14:39 Creatinine 0.6 mg/dL (0.5-0.9) 01/04/23 14:39 GFR Calculation 123.9 mL/min (90-130) 01/04/23 14:39 Glucose 74 mg/dL (65-115) 01/04/23 14:39 Calculated Osmolality 293 mOsm/kg (285-295) 01/04/23 14:39 Calcium 8.4 mg/dL (8.5-10.5) L 01/04/23 14:39 Discharge Plan Discharge Patient Disposition: Home Clinical Impression: Headache, post-lumbar puncture Condition: Stable Discharge Orders: Discharge ED (Routine); Ordered 01/04/23 Ordered By: Israel Spencer Referrals: Melyssa Francisco NP [Primary Care Provider] - Patient Instructions: Opioid Safety, Pain Management Coding Level of Care Code ED Security Sales Manager for Keli Loo
[2023-01-04] MEDS: sodium chloride 0.9% 1,000 ML 999 ML IV ×2 (16:09→16:10)
--- NOTE | 2023-01-04 16:16 | ANES.PROC ---
Anesthesia Procedures Procedure/Date: 01/04/23 Epidrual Blood Patch Epidural: Time Out Performed: Yes Consents Signed: Procedure Consent Consent: requested by attending/covering physician, from patient, risks and benefits reviewed and patient agrees to proceed Lumbar Level: L3-L4 Epidural position: sitting Epidural procedure: sterile prep of area, 1% lidocaine to numb the area and 18 g needle Additional Comments: on Sunday 12/31, wet tap with epidural placement, blood patch on Tuesday 01/02. To ED today with contd. h/a. Epidural needle placed as above, attempted several locations to retrieve blood and only able to collect about 10mls which was placed in sterile fashion into epidural space with only slight relief of h/a. Suggested 2L NS bolus and fentanyl IV for more relief. Patient tolerated well.
[2023-01-04 16:17] VITALS: BP 124/79; PULSE 70; RESP 18; O2SAT 99
== END 2023-01-04 17:09 | disposition home or self-care (01) ==
PROVIDERS: Emergency Provider Family Medicine; PCP Nurse Practitioner Family
DX: G97.1 Other reaction to spinal and lumbar puncture (principal); Z87.891 Personal history of nicotine dependence
CPT/HCPCS: 36415; 80048; 85025; 96374; 99284; J3010; J7030

== ENCOUNTER → 2023-08-23 13:52 | Outpatient (BNVA) | payer MEDICAID, SELFPAY | PROVIDERS: PCP Nurse Practitioner Family; Visit Provider Nurse Practitioner Women's Health | DX: Z34.90 Encounter for supervision of normal pregnancy, unspecified, unspecified trimester (principal); Z12.4 Encounter for screening for malignant neoplasm of cervix; N92.6 Irregular menstruation, unspecified | CPT/HCPCS: 81025; 84315; 84702; 87086; 87491; 87591; 88175 ==

== ENCOUNTER → 2023-08-27 10:21 | Outpatient (BNVA) | payer MEDICAID, SELFPAY | PROVIDERS: PCP Nurse Practitioner Family; Visit Provider Obstetrics & Gynecology | DX: Z36.87 Encounter for antenatal screening for uncertain dates (principal) | CPT/HCPCS: 76801 ==

== ENCOUNTER 2023-09-13 20:50 | Emergency (ER) | payer MEDICAID, SELFPAY ==
[2023-09-13 20:54] VITALS: BP 118/72; PULSE 77; RESP 18; TEMP 36.4; O2SAT 98
--- NOTE | 2023-09-13 21:58 | W.ED.NAVMDI ---
HPI - Nausea/Vomiting/Diarrhea General: Chief complaint: Nausea/Vomiting/Diarrhea Stated complaint: Preg 9 Week\Weak\V\Dizzy Time Seen by Provider: 09/13/23 21:51 History of Present Illness: 23-year-old female in her ninth week of comes in today for inability to hold fluids down for the last 3 days. Patient appears nontoxic. Patient has recently been started on doxylamine with B6, Reglan, and promethazine to help with her nausea vomiting during . Patient reports she has not been able to get the prescriptions filled at this time. 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 Associated nausea: Yes Associated symtoms: Reports nausea Review of Systems General: Reports: 10 or more systems reviewed and unremarkable except in HPI and below Const: Denies: fever(s) GI: Reports: nausea and vomiting; Denies: abdominal pain : Denies: vaginal bleeding or vaginal discharge PFS ED PFSH: Medical History History of prior with IUGR No pertinent past medical history neghx: htn,dm,thyroid,dvt/pe Surgical History Hx of tonsillectomy Family History Family/Other Breast cancer Paternal aunt-- unknown dx age Grandmother Colon cancer Paternal --- unknown dx age Father Stroke Denies family history of Ovarian cancer Diabetes Heart disease Hypercholesteremia Bleeding disorder Hypertension Uterine cancer Thyroid disease Female Reproductive History: Date of last menstrual period: 07/15/23 Spontaneous abortions: No Physical Exam Const: COMMON NORMALS: alert HENMT: COMMON NORMALS: normocephalic HEAD & SCALP: normocephalic Neck/C-Spine: COMMON NORMALS: full ROM Resp: COMMON NORMALS: normal respiratory effort and clear to auscultation bilaterally AUSCULTATION: clear to auscultation bilaterally Cardio: COMMON NORMALS: regular rate RATE: regular rate GI: COMMON NORMALS: Soft to palpation PALPATION: Yes Soft to palpation : COMMON NORMALS: Yes no CVA tenderness BLADDER/KIDNEY EXAM: Yes no CVA tenderness Back/Pelvis: COMMON NORMALS: no CVA tenderness Extremity: COMMON NORMALS: no pedal edema Neuro: SENSORIUM/ORIENTATION: Yes alert Skin: COMMON NORMALS: turgor normal GENERAL SKIN EXAM: turgor normal Course Vital Signs: Vital signs: Vital Signs Temperature 97.5 F L 09/13/23 20:54 Pulse Rate 77 09/13/23 20:54 Respiratory Rate 18 09/13/23 20:54 Blood Pressure 118/72 09/13/23 20:54 Pulse Oximetry 98 09/13/23 20:54 Oxygen Delivery Me thod Room Air 09/13/23 20:54 MDM - Nausea/Vomiting/Diarrhea Medical Decision Making 23-year-old female comes in today for complaints of nausea vomiting with in the ninth week. Patient reports unable to hold fluids down for the last 3 days. Patient appears nontoxic. Abdomen soft nontender. No CVA tenderness. Patient denies fever, vaginal discharge, or vaginal bleeding. Differential diagnosis includes hyperemesis gravidarum, dehydration, UTI, unlikely threatened miscarriage. CBC, CMP, and urine test were unremarkable. Patient did have some concentrated urine probably suggesting some mild dehydration. Patient was infused with 1 L of LR and given Reglan for nausea. Patient was able to tolerate some sips of fluid. Patient was discharged home to continue plan of care and need for follow-up with primary care return to ER for worsening symptoms. Lab Data 09/13/23 22:20 09/13/23 22:20 Laboratory Results WBC 13.73 10^3/uL (3.29-11.43) H 09/13/23 22:20 RBC 4.28 10^6/uL (3.85-5.65) 09/13/23 22:20 Hgb 13.20 g/dL (11.27-16.99) 09/13/23 22:20 Hct 39.9 % (36-47) 09/13/23 22:20 MCV 93.2 fl (85-98) 09/13/23 22:20 MCH 30.8 pg (27-33) 09/13/23 22:20 MCHC 33.1 g/dL (30-55) 09/13/23 22:20 RDW 12.9 % (12.1-15.1) 09/13/23 22:20 Plt Count 251 10^3/cmm (157-399) 09/13/23 22:20 MPV 10.1 fL (7.4-10.4) 09/13/23 22:20 Neut % (Auto) 70.6 % 09/13/23 22:20 Lymph % (Auto) 21.3 % 09/13/23 22:20 [place] % (Auto) 7.0 % 09/13/23 22:20 Eos % (Auto) 0.4 % 09/13/23 22:20 Baso % (Auto) 0.3 % 09/13/23 22:20 Neut # (Auto) 9.71 10^3/uL (1.8-7.7) H 09/13/23 22:20 Lymph # (Auto) 2.9 10^3/uL (0.8-4.8) 09/13/23 22:20 [place] # (Auto) 1.0 10^3/uL (0.2-0.9) H 09/13/23 22:20 Eos # (Auto) 0.1 10^3/uL (0.0-0.8) 09/13/23 22:20 Baso # (Auto) 0.0 10^3/uL (0.0-0.1) 09/13/23 22:20 Nucleated RBC % (auto) 0 % 09/13/23 22:20 Nucleated RBCs # 0.0 /100WBC 09/13/23 22:20 Sodium 140 mmol/L (136-145) 09/13/23 22:20 Potassium 4.4 mmol/L (3.5-5.1) 09/13/23 22:20 Chloride 104 mmol/L (98-107) 09/13/23 22:20 Carbon Dioxide 23 mmol/L (22-29) 09/13/23 22:20 Anion Gap 17.4 (5-19) 09/13/23 22:20 BUN 9 mg/dL (6-20) 09/13/23 22:20 Creatinine 0.5 mg/dL (0.5-0.9) 09/13/23 22:20 GFR Calculation 151.6 mL/min (90-130) H 09/13/23 22:20 Glucose 118 mg/dL (65-115) H 09/13/23 22:20 Calculated Osmolality 290 mOsm/kg (285-295) 09/13/23 22:20 Calcium 8.9 mg/dL (8.5-10.5) 09/13/23 22:20 Total Bilirubin 0.9 mg/dL (0.15-1.2) 09/13/23 22:20 AST 16 U/L (0-32) 09/13/23 22:20 ALT 8 U/L (0-33) 09/13/23 22:20 Alkaline Phosphatase 52 U/L (35-105) 09/13/23 22:20 Total Protein 7.0 g/dL (6.6-8.7) 09/13/23 22:20 Albumin 4.2 g/dL (3.5-5.2) 09/13/23 22:20 Globulin 2.8 g/dL (1.3-4.6) 09/13/23 22:20 Lipase 20 U/L (13-60) 09/13/23 22:20 Urine Color Yellow (Yellow) 09/13/23 22:35 Urine Appearance Sl hazy (CLEAR) A 09/13/23 22:35 Urine pH 6 (5-7) 09/13/23 22:35 Ur Specific [place] 1.025 (1.005-1.030) 09/13/23 22:35 Urine Protein Trace (Negative) 09/13/23 22:35 Urine Glucose (UA) Norm (Normal) 09/13/23 22:35 Urine Ketones 3+ (Negative) H 09/13/23 22:35 Urine Blood Neg (Negative) 09/13/23 22:35 Urine Nitrate Negative (Negative) 09/13/23 22:35 Urine Bilirubin Neg (Negative) 09/13/23 22:35 Urine Urobilinogen 1 mg/dL (Negative) H 09/13/23 22:35 Ur Leukocyte Esterase 1+ (Negative) H 09/13/23 22:35 Urine RBC 5-10 /hpf (0-2) H 09/13/23 22:35 Urine WBC 10-15 /hpf (0-5) H 09/13/23 22:35 Ur Squamous Epith Cells 25-40 /hpf (0-5) H 09/13/23 22:35 Amorphous Sediment Not Reportable 09/13/23 22:35 Urine Bacteria 2+ /hpf (NONE) H 09/13/23 22:35 Urine Mucus 2+ /hpf 09/13/23 22:35 No radiology studies performed this visit Discharge Plan Discharge Patient Disposition: Home Clinical Impression: Nausea/vomiting in Condition: Stable Prescriptions: No Action DHA 200 mg capsule 200 mg PO DAILY promethazine 25 mg tablet 25 mg PO Q6H PRN (Reason: nausea and vomiting) Qty: 45 0RF doxylamine-pyridoxine (vit B6) [Diclegis] 10-10 mg tablet,delayed release (DR/EC) See Rx Instructions PO DAILY Qty: 120 0RF Rx Instructions: 2 tabs at hs; 1 in the am if needed; 1 at noon if needed metoclopramide HCl [Reglan] 10 mg tablet 10 mg PO Q6H PRN (Reason: nausea and vomiting) Qty: 120 0RF Discharge Orders: Discharge ED (Routine); Ordered 09/13/23 Ordered By: Brandon Frazier Referrals: Melyssa Francisco MECHANICAL ENGINEERING PROFESSOR [Primary Care Provider] - Discharge Diet: Usual diet Discharge Activity: Increase activity as tolerated Patient Instructions: Nausea and Vomiting in (ED) Activity Restrictions/Additional Instructions: Continue with routine medications as directed by [facility]. Drink frequent sips of fluid. Try to eat starchy foods in order to help with nausea. Follow-up with primary care or [facility] for further instructions. Coding Level of Care Code ED Adult Protective Caseworker for Keli Loo
[2023-09-13 22:25] LABS: Basophils % 0.3 %; Eosinophils # 0.1 10^3/uL (0.0-0.8); Eosinophils % 0.4 %; Hematocrit 39.9 % (36-47); Lymphocytes # 2.9 10^3/uL (0.8-4.8); Lymphocytes % 21.3 %; Mean Corpuscular HGB Conc 33.1 g/dL (30-55); Mean Corpuscular Hemoglobin 30.8 pg (27-33); Mean Corpuscular Volume 93.2 fl (85-98); Mean Platelet Volume 10.1 fL (7.4-10.4); Neutrophils # 9.71 10^3/uL (1.8-7.7); Neutrophils % 70.6 %; Nucleated Red Blood Cells % 0 %; Platelet Count 251 10^3/cmm (157-399); Red Blood Count 4.28 10^6/uL (3.85-5.65); Red Cell Distribution Width 12.9 % (12.1-15.1); White Blood Count 13.73 10^3/uL (3.29-11.43)
[2023-09-13] MEDS: metoclopramide 5 mg/mL SDV 2 mL 10 MG IVP (22:25)
[2023-09-13] MEDS: lactated ringers 1,000 ML 999 ML IV (22:29)
[2023-09-13 22:48] LABS: Alanine Aminotransferase 8 U/L (0-33); Albumin Level 4.2 g/dL (3.5-5.2); Alkaline Phosphatase 52 U/L (35-105); Anion Gap 17.4 (5-19); Aspartate Amino Transferase 16 U/L (0-32); Blood Urea Nitrogen 9 mg/dL (6-20); Calcium 8.9 mg/dL (8.5-10.5); Carbon Dioxide 23 mmol/L (22-29); Chloride 104 mmol/L (98-107); Creatinine Clr Calc Pharmacy 172.8787; Globulin 2.8 g/dL (1.3-4.6); Glomerular Filtration Rate 151.6 mL/min (90-130); Glucose 118 mg/dL (65-115); Lipase 20 U/L (13-60); Osmolality Calculated 290 mOsm/kg (285-295); Potassium 4.4 mmol/L (3.5-5.1); Sodium 140 mmol/L (136-145); Total Bilirubin 0.9 mg/dL (0.15-1.2)
[2023-09-13 22:49] LABS: Add Urine Microscopic? YES; Bilirubin Urine Neg (Negative); Blood Urine Neg (Negative); Glucose Urine UA Norm (Normal); Ketones Urine 3+ (Negative); Leukocyte Esterase Urine 1+ (Negative); Nitrate Urine Negative (Negative); Protein Urine Trace (Negative); Specific Gravity, Urine 1.025 (1.005-1.030); Urine Appearance SL Hazy (CLEAR); Urine Color Yellow (Yellow); Urobilinogen Urine 1 mg/dL (Negative); pH Urine 6 (5-7)
[2023-09-13 22:50] LABS: Add Urine Culture? No; Bacteria Urine 2+ /hpf; Mucus Urine 2+ /hpf; Squamous Epithelial Cell Urine 25-40 /hpf (0-5)
[2023-09-13 23:29] VITALS: BP 92/51; PULSE 76; RESP 16; O2SAT 97
[2023-09-13 23:30] VITALS: BP 92/51; PULSE 76; RESP 16; TEMP 36.4; O2SAT 97
== END 2023-09-13 23:31 | disposition home or self-care (01) ==
PROVIDERS: Emergency Provider Nurse Practitioner Family; PCP Nurse Practitioner Family
DX: O26.891 Other specified pregnancy related conditions, first trimester (principal); R11.2 Nausea with vomiting, unspecified; Z3A.09 9 weeks gestation of pregnancy
CPT/HCPCS: 80053; 81000; 81001; 83690; 85025; 96361; 96374; 99284; J2765; J7120

== ENCOUNTER 2023-09-21 13:32 | Emergency (ER) | payer MEDICAID, SELFPAY ==
[2023-09-21 13:46] VITALS: BP 116/75; PULSE 91; RESP 16; TEMP 36.9; O2SAT 99
[2023-09-21] MEDS: sodium chloride 0.9% 1,000 ML 999 ML IV ×2 (15:14→16:10)
[2023-09-21] MEDS: metoclopramide 5 mg/mL SDV 2 mL 10 MG IVP (15:14)
[2023-09-21] MEDS: diphenhydrAMINE 50 mg/mL SDV 1mL IVP (15:14)
--- NOTE | 2023-09-21 15:26 | ED_ITS ---
HPI - Nausea/Vomiting/Diarrhea 2 General: Chief complaint: Nausea/Vomiting/Diarrhea Stated complaint: 10 weeks preg, lightheaded , vomiting blood Time Seen by Provider: 09/21/23 14:59 Source: patient Mode of arrival: ambulatory Limitations: no limitations History of Present Illness: 23-year-old female is currently 10 weeks she states she has had hyperemesis gravidarum with this she has tried Reglan and Phenergan at home with no relief states she has been vomiting over the last week. She states that she has not been able to tolerate really any fluids and feels dehydrated she denies any fever denies any abdominal pain denies any vaginal bleeding. Associated nausea: Yes Associated symtoms: Reports nausea; Denies chest pain, dysuria or headache(s) Review of Systems 2 Const: Denies: fever(s), chills, body aches or change in appetite Card: Denies: chest pain Resp: Denies: dyspnea GI: Reports: nausea and vomiting; Denies: abdominal pain or diarrhea : Denies: dysuria Musc: Denies: neck pain or back pain Neuro: Denies: headache(s) PFSH ED 2 PFSH: Medical History History of prior with IUGR No pertinent past medical history neghx: htn,dm,thyroid,dvt/pe Surgical History Hx of tonsillectomy Family History Family/Other Breast cancer Paternal aunt-- unknown dx age Grandmother Colon cancer Paternal --- unknown dx age Father Stroke Denies family history of Ovarian cancer Diabetes Heart disease Hypercholesteremia Bleeding disorder Hypertension Uterine cancer Thyroid disease Female Reproductive History: Spontaneous abortions: No Physical Exam 2 Const: COMMON NORMALS: no acute distress, patient oriented x3 and healthy appearing HENMT: COMMON NORMALS: normocephalic and atraumatic HEAD & SCALP: n ormocephalic and atraumatic Eye: COMMON NORMALS: conjunctivae normal CONJUNCTIVA: Yes conjunctivae normal Neck/C-Spine: COMMON NORMALS: full ROM and supple Chest: COMMONS NORMALS: normal inspection of the chest Resp: COMMON NORMALS: normal respiratory effort Cardio: COMMON NORMALS: regular rate RATE: regular rate GI: COMMON NORMALS: Normal to inspection, nondistended, normoactive bowel sounds present, Soft to palpation, non-tender and no masses PALPATION: Yes Soft to palpation Extremity: COMMON NORMALS: normal to inspection and full ROM Neuro: COMMON NORMALS: patient oriented x3, moves all extremities and no focal motor deficits Psych: COMMON NORMALS: mental status grossly normal, Normal thought process present and cooperative THOUGHT PROCESS: Normal thought process present Skin: COMMON NORMALS: no rashes or lesions noted and no wounds GENERAL SKIN EXAM: no rashes or lesions noted Course 2 Vital Signs: Vital signs: Vital Signs Temperature 98.4 F 09/21/23 13:46 Pulse Rate 91 09/21/23 13:46 Respiratory Rate 16 09/21/23 13:46 Blood Pressure 116/75 09/21/23 13:46 Pulse Oximetry 99 09/21/23 13:46 Oxygen Delivery Me thod Room Air 09/21/23 13:46 MDM - Nausea/Vomiting/Diarrhea Medical Decision Making Patient presents with hyperemesis gravidarum she feels much improved here after IV fluids and IV Reglan blood work is normal she is dehydrated here I did a bedside ultrasound showed an IUP consistent dates heart rate 152 she stable for discharge she has Reglan and Phenergan at home she is follow-up with her OB Dr. Mtz return if worsening. Medical Records I reviewed the patient's medical records. Lab Data I reviewed the patient's lab results. 09/21/23 15:14 09/21/23 15:14 Laboratory Results WBC 12.49 10^3/uL (3.29-11.43) H 09/21/23 15:14 RBC 4.63 10^6/uL (3.85-5.65) 09/21/23 15:14 Hgb 14.30 g/dL (11.27-16.99) 09/21/23 15:14 Hct 42.3 % (36-47) 09/21/23 15:14 MCV 91.4 fl (85-98) 09/21/23 15:14 MCH 30.9 pg (27-33) 09/21/23 15:14 MCHC 33.8 g/dL (30-55) 09/21/23 15:14 RDW 12.6 % (12.1-15.1) 09/21/23 15:14 Plt Count 258 10^3/cmm (157-399) 09/21/23 15:14 MPV 10.9 fL (7.4-10.4) H 09/21/23 15:14 Neut % (Auto) 76.1 % 09/21/23 15:14 Lymph % (Auto) 16.1 % 09/21/23 15:14 [place] % (Auto) 7.0 % 09/21/23 15:14 Eos % (Auto) 0.2 % 09/21/23 15:14 Baso % (Auto) 0.3 % 09/21/23 15:14 Neut # (Auto) 9.50 10^3/uL (1.8-7.7) H 09/21/23 15:14 Lymph # (Auto) 2.0 10^3/uL (0.8-4.8) 09/21/23 15:14 [place] # (Auto) 0.9 10^3/uL (0.2-0.9) 09/21/23 15:14 Eos # (Auto) 0.0 10^3/uL (0.0-0.8) 09/21/23 15:14 Baso # (Auto) 0.0 10^3/uL (0.0-0.1) 09/21/23 15:14 Nucleated RBC % (auto) 0 % 09/21/23 15:14 Nucleated RBCs # 0.0 /100WBC 09/21/23 15:14 Sodium 138 mmol/L (136-145) 09/21/23 15:14 Potassium 3.6 mmol/L (3.5-5.1) 09/21/23 15:14 Chloride 102 mmol/L (98-107) 09/21/23 15:14 Carbon Dioxide 22 mmol/L (22-29) 09/21/23 15:14 Anion Gap 17.6 (5-19) 09/21/23 15:14 BUN 9 mg/dL (6-20) 09/21/23 15:14 Creatinine 0.5 mg/dL (0.5-0.9) 09/21/23 15:14 GFR Calculation 151.6 mL/min (90-130) H 09/21/23 15:14 Glucose 82 mg/dL (65-115) 09/21/23 15:14 Calculated Osmolality 284 mOsm/kg (285-295) L 09/21/23 15:14 Calcium 8.9 mg/dL (8.5-10.5) 09/21/23 15:14 Total Bilirubin 1.5 mg/dL (0.15-1.2) H 09/21/23 15:14 AST 21 U/L (0-32) 09/21/23 15:14 ALT 31 U/L (0-33) 09/21/23 15:14 Alkaline Phosphatase 53 U/L (35-105) 09/21/23 15:14 Total Protein 7.2 g/dL (6.6-8.7) 09/21/23 15:14 Albumin 4.3 g/dL (3.5-5.2) 09/21/23 15:14 Globulin 2.9 g/dL (1.3-4.6) 09/21/23 15:14 Lipase 25 U/L (13-60) 09/21/23 15:14 Urine Color Yellow (Yellow) 09/21/23 14:55 Urine Appearance Hazy (CLEAR) A 09/21/23 14:55 Urine pH 6.5 (5-7) 09/21/23 14:55 Ur Specific [place] 1.015 (1.005-1.030) 09/21/23 14:55 Urine Protein Trace (Negative) 09/21/23 14:55 Urine Glucose (UA) Norm (Normal) 09/21/23 14:55 Urine Ketones 3+ (Negative) H 09/21/23 14:55 Urine Blood Neg (Negative) 09/21/23 14:55 Urine Nitrate Negative (Negative) 09/21/23 14:55 Urine Bilirubin Neg (Negative) 09/21/23 14:55 Urine Urobilinogen 1 mg/dL (Negative) H 09/21/23 14:55 Ur Leukocyte Esterase 2+ (Negative) H 09/21/23 14:55 Urine RBC 0-4 /hpf (0-2) H 09/21/23 14:55 Urine WBC 55-80 /hpf (0-5) H 09/21/23 14:55 Ur Squamous Epith Cells 15-25 /hpf (0-5) H 09/21/23 14:55 Amorphous Sediment Not Reportable 09/21/23 14:55 Urine Bacteria Trace /hpf (NONE) 09/21/23 14:55 Urine Mucus 4+ /hpf 09/21/23 14:55 No radiology studies performed this visit Discharge Plan Discharge Patient Disposition: Home Clinical Impression: Nausea/vomiting in Condition: Stable Prescriptions: No Action DHA 200 mg capsule 200 mg PO QAM promethazine 25 mg tablet 25 mg PO Q6H PRN (Reason: nausea and vomiting) Qty: 45 0RF doxylamine-pyridoxine (vit B6) [Diclegis] 10-10 mg tablet,delayed release (DR/EC) See Rx Instructions PO DAILY Qty: 120 0RF Rx Instructions: 2 tabs at hs; 1 in the am if needed; 1 at noon if needed metoclopramide HCl [Reglan] 10 mg tablet 10 mg PO Q6H PRN (Reason: nausea and vomiting) Qty: 120 0RF Discharge Orders: Discharge ED (Routine); Ordered 09/21/23 Ordered By: Deedee Stern Referrals: Alok Mtz MD [Physician] - 4-7 days Melyssa Francisco NP [Primary Care Provider] - Discharge Diet: Advance as tolerated Discharge Activity: Resume usual activity Patient Instructions: Hyperemesis Gravidarum (ED) Coding Level of Care Code ED Yardmaster for Keli Loo
[2023-09-21 15:29] LABS: Add Urine Microscopic? YES; Bilirubin Urine Neg (Negative); Blood Urine Neg (Negative); Glucose Urine UA Norm (Normal); Ketones Urine 3+ (Negative); Leukocyte Esterase Urine 2+ (Negative); Nitrate Urine Negative (Negative); Protein Urine Trace (Negative); Specific Gravity, Urine 1.015 (1.005-1.030); Urine Appearance Hazy (CLEAR); Urine Color Yellow (Yellow); Urobilinogen Urine 1 mg/dL (Negative); pH Urine 6.5 (5-7)
[2023-09-21 15:30] LABS: Add Urine Culture? No; Bacteria Urine TRACE /hpf; Mucus Urine 4+ /hpf; RBC Urine 0-4 /hpf (0-2); Squamous Epithelial Cell Urine 15-25 /hpf (0-5); WBC Urine 55-80 /hpf (0-5)
[2023-09-21 16:01] LABS: Alanine Aminotransferase 31 U/L (0-33); Albumin Level 4.3 g/dL (3.5-5.2); Alkaline Phosphatase 53 U/L (35-105); Anion Gap 17.6 (5-19); Aspartate Amino Transferase 21 U/L (0-32); Blood Urea Nitrogen 9 mg/dL (6-20); Calcium 8.9 mg/dL (8.5-10.5); Carbon Dioxide 22 mmol/L (22-29); Chloride 102 mmol/L (98-107); Creatinine Clr Calc Pharmacy 172.8787; Globulin 2.9 g/dL (1.3-4.6); Glomerular Filtration Rate 151.6 mL/min (90-130); Glucose 82 mg/dL (65-115); Lipase 25 U/L (13-60); Osmolality Calculated 284 mOsm/kg (285-295); Potassium 3.6 mmol/L (3.5-5.1); Sodium 138 mmol/L (136-145); Total Bilirubin 1.5 mg/dL (0.15-1.2); Total Protein 7.2 g/dL (6.6-8.7)
[2023-09-21 16:04] LABS: Basophils % 0.3 %; Eosinophils % 0.2 %; Hematocrit 42.3 % (36-47); Lymphocytes % 16.1 %; Mean Corpuscular HGB Conc 33.8 g/dL (30-55); Mean Corpuscular Hemoglobin 30.9 pg (27-33); Mean Corpuscular Volume 91.4 fl (85-98); Mean Platelet Volume 10.9 fL (7.4-10.4); Monocytes # 0.9 10^3/uL (0.2-0.9); Neutrophils % 76.1 %; Nucleated Red Blood Cells % 0 %; Platelet Count 258 10^3/cmm (157-399); Red Blood Count 4.63 10^6/uL (3.85-5.65); Red Cell Distribution Width 12.6 % (12.1-15.1); White Blood Count 12.49 10^3/uL (3.29-11.43)
== END 2023-09-21 17:19 | disposition home or self-care (01) ==
PROVIDERS: Emergency Provider Emergency Medicine; PCP Nurse Practitioner Family
DX: O26.891 Other specified pregnancy related conditions, first trimester (principal); R11.2 Nausea with vomiting, unspecified; Z3A.10 10 weeks gestation of pregnancy
CPT/HCPCS: 80053; 81001; 83690; 85025; 96361; 96374; 96375; 99284; J1200; J2765; J7030

== ENCOUNTER → 2023-09-27 08:19 | Outpatient (BNVA) | payer MEDICAID, SELFPAY | PROVIDERS: PCP Nurse Practitioner Family; Visit Provider Obstetrics & Gynecology | DX: Z34.90 Encounter for supervision of normal pregnancy, unspecified, unspecified trimester | CPT/HCPCS: 80307; 81000; 85025; 86592; 86762; 86803; 86850; 86900; 87086; 87340; 87806 ==